=== PATIENT | male | born 1960 | race Caucasian/White ===

== ENCOUNTER 2016-10-15 14:32 | Emergency (ER) | payer MEDICAID, OTHER ==
[2016-10-15 14:41] VITALS: RESP 17
--- NOTE | 2016-10-15 15:21 | C.PDOC ---
Time Seen by Provider: 10/15/16 15:00 Chief Complaint (Nursing): Cough, Cold, Congestion Past Medical History Vital Signs: Last Vital Signs Temp 98.5 F 10/15/16 14:39 Pulse 67 10/15/16 14:39 Resp 17 10/15/16 14:39 BP 171/76 H 10/15/16 14:39 Pulse Ox 97 10/15/16 14:39 - Medical History PMH: HTN Family History: States: Unknown Family Hx - Social History Hx Tobacco Use: Yes Hx Alcohol Use: No Hx Substance Use: No - Immunization History Hx Tetanus Toxoid Vaccination: No Hx Influenza Vaccination: No Hx Pneumococcal Vaccination: No ED Course And Treatment O2 Sat by Pulse Oximetry: 97 Disposition - Disposition Forms: [facility] (Pakistani)
--- NOTE | 2016-10-15 15:38 | RAD ---
HISTORY: COUGH COMPARISON: 06/25/2015 TECHNIQUE: Chest PA and lateral FINDINGS: LUNGS: No active pulmonary disease. PLEURA: No significant pleural effusion identified. No pneumothorax apparent. CARDIOVASCULAR: Normal. OSSEOUS STRUCTURES: No significant abnormalities. VISUALIZED UPPER ABDOMEN: Normal. OTHER FINDINGS: None. IMPRESSION: No active disease.
--- NOTE | 2016-10-15 15:45 | C.PDOC ---
History Of Present Illness 56-YEAR-OLD MALE, PRESENTS TO THE EMERGENCY DEPARTMENT WITH COMPLAINTS OF COUGH X 3 DAYS. ONSET AFTER BEING OUTSIDE IN WET WEATHER. NO FEVER. +NASAL CONGESTION. +SMOKER. PT IS ALSO REQUESTING MED REFILL EXAM NEG Time Seen by Provider: 10/15/16 15:00 Chief Complaint (Nursing): Cough, Cold, Congestion History Per: Patient History/Exam Limitations: no limitations Onset/Duration Of Symptoms: Days Current Symptoms Are (Timing): Still Present Past Medical History Reviewed: Historical Data, Nursing Documentation, Vital Signs Vital Signs: Last Vital Signs Temp 98.0 F 10/15/16 15:57 Pulse 60 10/15/16 15:57 Resp 17 10/15/16 15:57 BP 151/82 H 10/15/16 15:57 Pulse Ox 99 10/15/16 15:57 - Medical History PMH: HTN Family History: States: No Known Family Hx - Social History Hx Tobacco Use: Yes Hx Alcohol Use: No Hx Substance Use: No - Immunization History Hx Tetanus Toxoid Vaccination: No Hx Influenza Vaccination: No Hx Pneumococcal Vaccination: No Review Of Systems Constitutional: Negative for: Fever ENT: Positive for: Nose Congestion Respiratory: Positive for: Cough. Negative for: Sputum Gastrointestinal: Negative for: Nausea, Vomiting Musculoskeletal: Negative for: Back Pain Neurological: Negative for: Weakness, Numbness, Headache Physical Exam - Physical Exam Appears: Non-toxic, No Acute Distress Skin: Warm, Dry, No Rash Head: Atraumatic, Normacephalic Eye(s): bilateral: Normal Inspection Nose: Normal Oral Mucosa: Moist Lips: Normal Appearing Neck: Normal ROM Cardiovascular: Rhythm Regular, No Murmur Respiratory: Normal Breath Sounds, No Accessory Muscle Use Extremity: Normal ROM Neurological/Psych: Oriented x3, Normal Speech ED Course And Treatment O2 Sat by Pulse Oximetry: 97 Pulse Ox Interpretation: Normal - Radiology CXR: Interpreted by Me CXR Interpretation: Yes: No Acute Disease Disposition Counseled Patient/Family Regarding: Studies Performed, Diagnosis, Need For Followup, Rx Given - Disposition Referrals: YOUR,PMD [Other] Disposition: HOME/ ROUTINE Disposition Time: 15:39 Condition: GOOD Prescriptions: Chlorpheniramine/Dextromethorp [Coricidin Hbp Cough & Cold 4 mg-30 mg] 1 tab PO Q6 #30 tab Losartan/Hydrochlorothiazide [Losartan-Hctz 100-25 mg Tab] 1 each PO DAILY #30 tablet Instructions: Upper Respiratory Infection (ED) Forms: [facility] (British) - Clinical Impression Clinical Impression: Medication refill, Upper respiratory infection - Scribe Statement The provider has reviewed the documentation as recorded by the Scribe (Cierra Galindo) All medical record entries made by the Scribe were at my direction and personally dictated by me. I have reviewed the chart and agree that the record accurately reflects my personal performance of the history, physical exam, medical decision making, and the department course for this patient. I have also personally directed, reviewed, and agree with the discharge instructions and disposition.
[2016-10-15 16:01] VITALS: BP 151/82; PULSE 60; TEMP 98
[2016-10-17 08:22] VITALS: O2SAT 97
== END 2016-10-15 16:01 | disposition home or self-care (01) ==
LOC: C.ER 14:32
DX: J06.9 Acute upper respiratory infection, unspecified (principal); Z76.0 Encounter for issue of repeat prescription

== ENCOUNTER 2016-10-17 16:46 | Emergency (ER) | payer OTHER ==
--- NOTE | 2016-10-17 17:51 | C.PDOC ---
History Of Present Illness Patient is a 56 y/o male who presents to the ED with a complaint of chest pain since Tuesday. Patient was seen in ED for congestion and bilateral rib pain on Tuesday, but since has experienced persistent pain and notes abdominal pain onset. Patient notes no known trauma and has no other complaints at this time. Time Seen by Provider: 10/17/16 17:39 Chief Complaint (Nursing): Rib Injury History/Exam Limitations: no limitations Onset/Duration Of Symptoms: Days (chest pain since Tuesday; abdominal pain gradual onset after ED visit. ) Current Symptoms Are (Timing): Still Present Recent travel outside of the [place]: No Past Medical History Reviewed: Historical Data, Nursing Documentation, Vital Signs Vital Signs: Last Vital Signs Temp 98.5 F 10/17/16 19:09 Pulse 70 10/17/16 19:09 Resp 20 10/17/16 19:09 BP 123/75 10/17/16 19:09 Pulse Ox 100 10/17/16 19:09 - Medical History PMH: HTN Surgical History: No Surg Hx Family History: States: Unknown Family Hx - Social History Hx Tobacco Use: Yes Hx Alcohol Use: No Hx Substance Use: No - Immunization History Hx Tetanus Toxoid Vaccination: No Hx Influenza Vaccination: No Hx Pneumococcal Vaccination: No Review Of Systems Except As Marked, All Systems Reviewed And Found Negative. Cardiovascular: Positive for: Chest Pain Gastrointestinal: Positive for: Abdominal Pain Physical Exam - Physical Exam Appears: Well, Non-toxic, No Acute Distress Skin: Warm, Dry, Diaphoretic Head: Atraumatic, Normacephalic Oral Mucosa: Moist Chest: Symmetrical Cardiovascular: Rhythm Regular, No Murmur Respiratory: Normal Breath Sounds, No Rales, No Rhonchi, No Wheezing Gastrointestinal/Abdominal: Soft, Tenderness (L costal margin tenderness.) Extremity: Normal ROM (x4) Neurological/Psych: Oriented x3, Normal Speech, Normal Cognition ED Course And Treatment - Laboratory Results Result Diagrams: 10/17/16 17:57 10/17/16 17:57 ECG: Interpreted By Me, Viewed By Me Interpretation Of ECG: ectopic atrial rhythm. Rate From EC (bpm) O2 Sat by Pulse Oximetry: 96 (room air) Pulse Ox Interpretation: Normal Medical Decision Making Medical Decision Making: r/o pna. abdominal patholgy, atypcial cardiac, msk pain Plan: CXR, EKG, blood work ordered; Toradol administered. 800: requested pt received ct imaging study. pt refuses. advises "he just wants pain med" and go home. advised of risk of leaving without imaging. states he will follow up with your his doctor. Disposition - Disposition Disposition: HOME/ ROUTINE Disposition Time: 18:54 Condition: STABLE Additional Instructions: please follow up with your doctor. return to er with worsening symptoms or concerns. yo uare leaving with out ct imaging. you are able to return at any time with any concern. Prescriptions: Naproxen [Naprosyn] 500 mg PO BID PRN #14 tablet PRN Reason: Pain, Mild (1-3) Instructions: Chest Pain (ED), Acute Abdominal Pain (ED), Thoracic Pain (ED) Forms: [employer] (Bermudian) - Clinical Impression Clinical Impression: Chest pain, Abdominal pain - Scribe Statement The provider has reviewed the documentation as recorded by the Scribe Cherrie Brenner All medical record entries made by the Scribe were at my direction and personally dictated by me. I have reviewed the chart and agree that the record accurately reflects my personal performance of the history, physical exam, medical decision making, and the department course for this patient. I have also personally directed, reviewed, and agree with the discharge instructions and disposition.
[2016-10-17 18:00] LABS: BASO # 0.1 K/uL (0.0-0.2); BASO % 0.4 % (0.0-2.0); EOS # 0.1 K/uL (0.0-0.7); EOS % 0.4 % (0.0-4.0); HEMATOCRIT 45.8 % (35.0-51.0); LYMPH # 1.4 K/uL (1.0-4.3); LYMPH % 10.4 % (20.0-40.0); MEAN CELL VOLUME 91.7 fL (80.0-94.0); MEAN CORPUSCULAR HEMOGLOBIN 30.6 pg (27.0-31.0); MEAN CORPUSCULAR HGB CONC 33.4 g/dL (33.0-37.0); MEAN PLATELET VOLUME 7.8 fL (7.2-11.7); MONO # 1.3 K/uL (0.0-0.8); MONO % 9.6 % (0.0-10.0); RED CELL DISTRIBUTION WIDTH 13.4 % (11.5-14.5)
[2016-10-17 18:08] LABS: CHLORIDE 96 mmol/L (98-107)
[2016-10-17 18:09] LABS: POTASSIUM 4.1 mmol/L (3.6-5.2); SODIUM 134 mmol/L (132-148)
[2016-10-17 18:11] LABS: ALB/GLOB RATIO 1.2 (1.0-2.1); ALKALINE PHOSPHATASE 72 U/L (38-126); ALT/SGPT 42 U/L (21-72); AST/SGOT 29 U/L (17-59); BILIRUBIN,TOTAL 1.2 mg/dL (0.2-1.3); BLOOD UREA NITROGEN 17 mg/dL (9-20); CARBON DIOXIDE 29 mmol/L (22-30); GFR AFRICAN-AMERICAN > 60; GLUCOSE,RANDOM 109 mg/dL (75-110); TOTAL PROTEIN 7.7 g/dL (6.3-8.3)
[2016-10-17 18:12] LABS: CALCIUM 9.4 mg/dl (8.6-10.4)
[2016-10-17 19:11] VITALS: BP 123/75; PULSE 70; RESP 20; TEMP 98.5
[2016-10-17 20:10] VITALS: O2SAT 96
--- NOTE | 2016-10-18 09:53 | RAD ---
HISTORY: chest pain COMPARISON: 10/15/2016 TECHNIQUE: Chest PA and lateral FINDINGS: LUNGS: No active pulmonary disease. PLEURA: No significant pleural effusion identified. No pneumothorax apparent. CARDIOVASCULAR: Normal. OSSEOUS STRUCTURES: No significant abnormalities. VISUALIZED UPPER ABDOMEN: Normal. OTHER FINDINGS: None. IMPRESSION: No active disease.
--- NOTE | 2016-10-18 12:22 | CARD ---
APPROVED REPORT EKG Measurement Heart [id number] <Conclusion> Unusual P axis, possible ectopic atrial rhythm Moderate voltage criteria for LVH, may be normal variant Abnormal ECG
== END 2016-10-17 19:10 | disposition home or self-care (01) ==
LOC: C.ER 16:46
DX: R10.9 Unspecified abdominal pain (principal); R07.9 Chest pain, unspecified
CPT/HCPCS: 71020; 80053; 83690; 84484; 85025; 93005; 96374; 99284; J1885